=== PATIENT | male | born 1980 | race Caucasian/White ===

== ENCOUNTER 2016-12-26 19:59 | Emergency (ER) | payer SELFPAY ==
[~2016-12-26] VITALS: Ht 172.7 cm; Wt 86.2 kg
[2016-12-26 20:10] VITALS: BP 139/92
[2016-12-26] MEDS ORDERED: MECLIZINE HCL25 MG ORAL (20:39)
[2016-12-26 20:54] VITALS: BP 135/90
--- NOTE | 2016-12-27 07:44 | Emergency Room Report ---
History of Present Illness General Chief Complaint: Dizziness Source: Patient Present Illness HPI Patient is a 36-year-old male presented after increased dizziness. Patient gradual onset of symptoms. This is associated with some ringing in his ears. Patient reported having vertigo sensation which was worse with head movements intermittently. Patient denied any changes with head position. He reported having increased sinus congestion. Patient stated that he had been recently started on some oral steroids as well as Augmentin. He denied feeling lightheaded. He reported having some improvement with meclizine which he was previously prescribed Allergies: Coded Allergies: No Known Allergies (Unverified , 12/26/16) Patient History Past Medical History: see triage record Reviewed Nursing Documentation: PMH: Agreed, PSxH: Agreed Nursing Documentation-PMH Past Medical History: No Stated History Review of Systems All Other Systems: negative except mentioned in HPI Physical Exam Vital Signs Date Time Temp Pulse Resp B/P Pulse Ox O2 Delivery O2 Flow Rate FiO2 12/26/16 20:03 97.2 86 14 139/92 97 Room Air General Appearance: well appearing, no apparent distress, alert, GCS 15, non- toxic Head: normocephalic, atraumatic Eyes: bilateral eye normal inspection ENT: hearing grossly normal, normal voice Neck: full range of motion, supple Respiratory: no respiratory distress, speaking full sentences Cardiovascular #1: normal inspection, normal peripheral pulses, regular rate, rhythm Gastrointestinal: normal inspection, non tender Musculoskeletal: normal inspection, back normal, no calf tenderness Neurologic: normal inspection, alert, oriented x3, responsive, district representative III-XII nml as tested, motor strength/tone normal, normal gait Psychiatric: normal inspection, mood/affect normal Skin: no rash Medical Decision Making Diagnostic Impression: Primary Impression: Vertigo ER Course Patient presented for dizziness. Differential diagnosis included was not limited to CVA, vertebrobasilar insufficiency, myocardial infarction, benign positional vertigo, labyrinthitis, aspirin overdose among others. The patient has exam consistent with peripheral vertigo. Patient was given oral meclizine prescription. The patient is advised to follow up with ENT i if symptoms persisted. Patient is advised to return if any worsening condition or if any changes in status that are concerning. Last Vital Signs Date Time Temp Pulse Resp B/P Pulse Ox O2 Delivery O2 Flow Rate FiO2 12/26/16 20:54 97.2 84 16 135/90 97 Room Air Status: improved Disposition: HOME, SELF-CARE Condition: Stable Scripts Meclizine Hcl* (MECLIZINE*) 25 Mg Tablet 25 MG ORAL THREE TIMES A DAY, #30 TAB Prov: Anibal Shaffer 12/26/16 Referrals: NOT CHOSEN IPA/MD,REFERRING (PCP) Patient Instructions: Vertigo Anibal Shaffer Dec 27, 2016 07:44
== END 2016-12-26 20:55 | disposition home or self-care (01) ==
LOC: EMR 20:51
DX: R42 Dizziness and giddiness (principal); R09.81 Nasal congestion
CPT/HCPCS: 99283